=== PATIENT | male | born 1960 | race Caucasian/White ===

== ENCOUNTER 2021-08-14 15:50 | Emergency (ER) | payer OTHER ==
--- NOTE | 2021-08-14 16:40 | EDM.PDOC ---
ED HPI GENERAL MEDICAL PROBLEM - General Chief Complaint: Fever Stated Complaint: COUGH,FEVER, Time Seen by Provider: 08/14/21 16:25 Source of Information: Reports: Patient, Old Records, RN History Limitations: Reports: No Limitations - History of Present Illness INITIAL COMMENTS - FREE TEXT/NARRATIVE: 60 yo male presents with an illness for the past 8 d that has included cough, fever and BAR. The cough is not productive. He is [facility] and has not seen anyone before today's visit. Is not vaccinated. His recently had Covid. Onset: Gradual Onset Date: 08/05/21 Duration: Day(s):, Getting Worse Location: Reports: Generalized Quality: Reports: Other (pain is not reported) Severity: Moderate Improves with: Reports: Rest Worsens with: Reports: Other (exertion) Context: Reports: Other (See HPI) Associated Symptoms: Reports: Cough, Fever/Chills, Malaise, Shortness of Breath (with exertion) Treatments ENT SURGEON: Reports: Other (see below) (none) neck back shoulders Pain Score (Numeric/FACES): 4 - Related Data Allergies Allergy/AdvReac Type Severity Reaction Status Date / Time No Known Allergies Allergy Verified 08/14/21 16:15 Home Meds: Home Meds allopurinoL [Zyloprim] 300 mg PO DAILY 10/27/13 [History] rOPINIRole HCl [Requip] 1 mg PO BEDTIME 10/27/13 [History] Multivitamin [Multiple Vitamins] 1 tab PO DAILY 02/25/15 [History] Acetaminophen 325 mg PO DAILY 11/18/18 [History] Past Medical History HEENT History: Reports: Impaired Vision Cardiovascular History: Reports: High Cholesterol, Hypertension Respiratory History: Reports: None Gastrointestinal History: Reports: None Genitourinary History: Reports: None Musculoskeletal History: Reports: Arthritis, Back Pain, Chronic, Neck Pain, Chronic, Osteoarthritis, RA, Other (See Below) Other Musculoskeletal History: plantar fascitis. bad left ankle from injury Psychiatric History: Reports: None Endocrine/Metabolic History: Reports: Obesity/BMI 30+ Hematologic History: Reports: None Oncologic (Cancer) History: Reports: None Dermatologic History: Reports: None - Infectious Disease History Infectious Disease History: Reports: Chicken Pox, Rheumatic Fever - Past Surgical History HEENT Surgical History: Reports: Oral Surgery, Tonsillectomy GI Surgical History: Reports: Colonoscopy Neurological Surgical History: Reports: C-Spine Musculoskeletal Surgical History: Reports: Arthroscopic Knee, Shoulder Surgery Other Musculoskeletal Surgeries/Procedures:: bilateral for both Social & Family History - Tobacco Use Tobacco Use Status *Q: Never Tobacco User - Caffeine Use Caffeine Use: Reports: None - Recreational Drug Use Recreational Drug Use: No ED ROS GENERAL - Review of Systems Review Of Systems: See Below Constitutional: Reports: Fever, Chills, Malaise HEENT: Reports: No Symptoms Respiratory: Reports: Shortness of Breath, Cough. Denies: Sputum Cardiovascular: Reports: Lightheadedness Endocrine: Reports: No Symptoms GI/Abdominal: Reports: No Symptoms : Reports: No Symptoms Musculoskeletal: Reports: No Symptoms Skin: Reports: No Symptoms Neurological: Reports: No Symptoms Psychiatric: Reports: No Symptoms ED EXAM, GENERAL - Physical Exam Exam: See Below Exam Limited By: No Limitations General Appearance: Alert, WD/WN, No Apparent Distress, Obese Eye Exam: Bilateral Eye: Normal Inspection Ears: Normal External Exam, Normal Canal, Hearing Grossly Normal, Normal TMs Ear Exam: Bilateral Ear: Auricle Normal, Canal Normal, TM normal Nose: Normal Inspection, No Blood Throat/Mouth: Normal Inspection, Normal Lips, Normal Oropharynx, Normal Voice, No Airway Compromise Head: Atraumatic, Normocephalic Neck: Normal Inspection Respiratory/Chest: No Respiratory Distress, No Accessory Muscle Use, Crackles Cardiovascular: Regular Rate, Rhythm, No Edema GI/Abdominal: Normal Bowel Sounds, Soft, Non-Tender, No Distention Back Exam: Normal Inspection. No: CVA Tenderness (R), CVA Tenderness (L) Extremities: Normal Inspection Neurological: Alert, Oriented, CN II-XII Intact, Normal Cognition, No Motor/Sensory Deficits Psychiatric: Normal Affect, Normal Mood Skin Exam: Warm, Dry, Intact, Normal Color, No Rash Course - Vital Signs Last Recorded V/S: Last Vital Signs Temp 35.3 C L 08/14/21 16:13 Pulse 89 08/14/21 16:13 Resp 18 08/14/21 16:13 BP 138/91 H 08/14/21 16:13 Pulse Ox 91 L 08/14/21 16:13 - Orders/Labs/Meds Orders: Active Orders 24 hr Category Date Time Status Isolation [COMM] Stat Oth 08/14/21 15:52 Ordered Labs: Laboratory Tests 08/14/21 Range/Units 16:02 Influenza Type A RNA Negative (NEGATIVE) RSV RNA ([facility]) Negative (NEGATIVE) Influenza Type B RNA Negative (NEGATIVE) SARS-CoV-2 RNA ([facility]ARCELO) Positive H (NEGATIVE) Departure - Departure Time of Disposition: 17:00 Disposition: Home, Self-Care 01 Condition: Fair Clinical Impression: COVID-19 - Discharge Information *PRESCRIPTION DRUG MONITORING PROGRAM REVIEWED*: Not Applicable *COPY OF PRESCRIPTION DRUG MONITORING REPORT IN PATIENT CLAU: Not Applicable Instructions: COVID-19 Frequently Asked Questions, COVID-19: Quarantine vs. Isolation - [facility] (08/01/2020) Referrals: Julita Frances MD [Primary Care Provider] - Forms: ED Department Discharge, ED Department Discharge Additional Instructions: Return tomorrow for immunoglobulin treatment. Take acetaminophen for fever control. Isolate yourself to prevent spread, wash hands frequently. Consider Vitamin D 4000 IU and Zinc50 mg daily for reduction in your illness. A baby aspirin may reduce your risk of clots. Recheck if SOB at rest. Sepsis Event Note (ED) - Focused Exam Vital Signs: Vital Signs Temp Pulse Resp BP Pulse Ox 08/14/21 16:13 35.3 C L 89 18 138/91 H 91 L 08/14/21 16:08 35.3 C L 89 18 138/91 H 91 L - My Orders Last 24 Hours: My Active Orders 08/14/21 15:52 Isolation [COMM] Stat - Assessment/Plan Last 24 Hours: My Active Orders 08/14/21 15:52 Isolation [COMM] Stat
[2021-08-14 16:49] LABS: CORONAVIRUS COVID-19 NAA POSITIVE (NEGATIVE)
[2021-08-14 16:57] VITALS: BP 128/77; PULSE 85
== END 2021-08-14 17:01 | disposition home or self-care (01) ==
LOC: JP.ED 15:50
DX: U07.1 COVID-19 (principal); E78.00 Pure hypercholesterolemia, unspecified; I10 Essential (primary) hypertension; M19.90 Unspecified osteoarthritis, unspecified site; M06.9 Rheumatoid arthritis, unspecified; E66.9 Obesity, unspecified; Z68.43 Body mass index [BMI] 50.0-59.9, adult; Z79.899 Other long term (current) drug therapy
CPT/HCPCS: 0241U; 99283